=== PATIENT | male | born 1975 | race Caucasian/White ===

== ENCOUNTER 2022-02-14 06:33 | Day surgery (SDC) | payer BC ==
[~2022-02-14] VITALS: Ht 185.4 cm; Wt 112.9 kg
[~2022-02-14 06:33] MED LIST: CEFAZOLIN SOD 1 GM in D5W 50 ML IV ONE
[2022-02-14] MEDS ORDERED: ROCURONIUM BROMIDE 10 MG/ML (ZEMURON) IV ONE (07:29)
[2022-02-14] MEDS ORDERED: GLYCOPYRROLATE 0.2 MG/ML VIAL IJ ONE (07:29)
[2022-02-14] MEDS ORDERED: SEVOFLURANE 15 MIN GAS INH ONE (07:29)
[2022-02-14] MEDS ORDERED: NS 1000 ML IV.SOLN IV ONE (07:29)
[2022-02-14] MEDS ORDERED: MIDAZOLAM HCL 5 MG/5 ML VIAL IVP ONE (07:29)
[2022-02-14] MEDS ORDERED: ONDANSETRON HCL 4 MG/2 ML VIAL IVP ONE (07:29)
[2022-02-14] MEDS ORDERED: NS IRRIG SOLN 1000 ML IR ONE (07:29)
[2022-02-14] MEDS ORDERED: NEOSTIGMINE METHYLSULFATE 1 MG/ML, 10 ML VIAL IVP ONE (07:29)
[2022-02-14] MEDS ORDERED: LR 1,000 ML IV.SOLN IV ONE (07:29)
[2022-02-14] MEDS ORDERED: SUCCINYLCHOLINE CHLORIDE 20 MG/ML(QUELICIN) IVP ONE (07:29)
[2022-02-14] MEDS ORDERED: BUPIVACAINE /PF 0.25% 30 ML VIAL INJ ONE (07:29)
[2022-02-14] MEDS ORDERED: fentaNYL CITRATE/PF 100 MCG/2 ML AMP IVP ONE (07:29)
[2022-02-14] MEDS ORDERED: PROPOFOL 200MG/ 20ML VIAL (DIPRIVAN) IV ONE (07:29)
[2022-02-14] MEDS ORDERED: LABETALOL 100 MG/ 20ML VIAL IVP PRN (08:30)
[2022-02-14] MEDS ORDERED: IBUPROFEN 800 MG TABLET PO PRN (08:30)
[2022-02-14] MEDS ORDERED: MEPERIDINE HCL/PF 25 MG/ML DISP.SYRIN IVP PRN (08:30)
[2022-02-14] MEDS ORDERED: HYDROmorphone 1 MG/ML INJ. CARTRIDGE IVP PRN ×2 (08:30→09:30)
[2022-02-14] MEDS ORDERED: METOCLOPRAMIDE HCL 10 MG/2 ML VIAL IVP PRN (08:30)
[2022-02-14] MEDS ORDERED: D5/0.45 NS 1,000 ML IV SCH (09:30)
[2022-02-14] MEDS ORDERED: HYDROcodone/ACETAMIN 5-325 MG TAB (NORCO/ VICODIN) PO PRN ×2 (09:30)
[2022-02-14] MEDS ORDERED: METOCLOPRAMIDE HCL 10 MG/2 ML VIAL ONE (10:53)
[2022-02-14 14:27] VITALS: BP_SYST 148
== END 2022-02-14 11:51 | disposition home or self-care (01) ==
LOC: SDS 06:33 → SMU 06:35 → SDS 11:51
PROVIDERS: ATTEND Colon & Rectal Surgery
DX: K80.12 Calculus of gallbladder with acute and chronic cholecystitis without obstruction (principal); K80.66 Calculus of gallbladder and bile duct with acute and chronic cholecystitis without obstruction; G47.33 Obstructive sleep apnea (adult) (pediatric); E78.5 Hyperlipidemia, unspecified; Z79.899 Other long term (current) drug therapy; Z20.822 Contact with and (suspected) exposure to COVID-19
CPT/HCPCS: 36415 ×2; 47563; 84132; 74300; 88304; U0003; J3490 ×2; J0690; J2765; J2250; J2405; J2704; J0330; J3010; Q9967; J7060; J7120; J7030; C1758; C1727; J2710; 76000